=== PATIENT | male | born 1995 | race Two or more races ===

== ENCOUNTER 2018-04-15 12:01 | Emergency (ER) | payer OTHER ==
[~2018-04-15] VITALS: Ht 170.2 cm; Wt 74.8 kg
== END 2018-04-15 13:45 | disposition home or self-care (01) ==
LOC: ER 12:01
DX: S13.4XXA Sprain of ligaments of cervical spine, initial encounter (principal); V49.9XXA Car occupant (driver) (passenger) injured in unspecified traffic accident, initial encounter; Y93.89 Activity, other specified; Y92.488 Other paved roadways as the place of occurrence of the external cause; Y99.8 Other external cause status

== ENCOUNTER 2018-07-14 09:53 | Outpatient (CLI) | payer OTHER | END 2018-07-14 11:01 | disposition home or self-care (01) | LOC: RAD 501 09:53 | DX: M54.2 Cervicalgia (principal) ==